=== PATIENT | female | born 1965 | race Caucasian/White ===

== ENCOUNTER 2018-04-24 09:05 | Day surgery (SDC) | payer OTHER ==
[2018-04-23 15:40] VITALS: BMI 35.1
--- NOTE | 2018-04-24 12:32 | OP ---
DATE OF PROCEDURE: 04/24/2018 PREOPERATIVE DIAGNOSES: Gastroesophageal reflux disease and ulcerative colitis. PROCEDURE IN DETAIL: After informed consent was obtained, the patient was placed in the left lateral decubitus position. Anesthesia was administered per the Anesthesia Department. Forward-viewing end oscope was inserted into the esophagus under direct visualization with ease and passed to the second portion of the duodenum with ease. The second portion of the duodenum and duodenal bulb were normal. Pylorus, antrum, body, fundus, and cardia were normal. Retroflexion in the stomach was normal. Es ophagus was normal throughout. ASSESSMENT: Normal esophagogastroduodenoscopy. RECOMMENDATIONS: 1. Continue proton pump inhibitor. 2. Proceed with colonoscopy. PROCEDURE: After informed consent was obtained, the patient was placed in left lateral decubitus pos ition. Anesthesia was administered per the Anesthesia Department. Forward-viewing endoscope was ins erted into the rectum after perianal inspection and rectal exam were normal, it was passed to the cec um with ease. The cecum, ileocecal valve, and appendiceal orifice were normal. The prep was excelle nt. The terminal ileum was entered and was normal in appearance. The ascending, transverse, descend ing, sigmoid and rectum were normal except for the distal 23 cm of the rectum. This showed circumfer ential nodularity and granularity, loss of vascularity and some exudate. Biopsies were taken from th e entire colon and placed into bottles and titled right colon and left colon. ASSESSMENT: 1. Active proctitis involving the distal 23 cm of the rectum. 2. Otherwise normal colonoscopy. RECOMMENDATION: 1. Await histopathology. 2. Continue sulfasalazine.
== END 2018-04-24 10:45 | disposition home or self-care (01) ==
LOC: SDC 09:05
PROVIDERS: ATTEND Internal Medicine Gastroenterology
PROC: 0DJ08ZZ Inspection of Upper Intestinal Tract, Via Natural or Artificial Opening Endoscopic (ICD-10-PCS; principal; 2018-04-24)
PROC: 0DBK8ZX Excision of Ascending Colon, Via Natural or Artificial Opening Endoscopic, Diagnostic (ICD-10-PCS; principal; 2018-04-24)
PROC: 0DBM8ZX Excision of Descending Colon, Via Natural or Artificial Opening Endoscopic, Diagnostic (ICD-10-PCS; principal; 2018-04-24)
DX: K51.20 Ulcerative (chronic) proctitis without complications (principal); K21.9 Gastro-esophageal reflux disease without esophagitis; Z79.899 Other long term (current) drug therapy
CPT/HCPCS: 88305

== ENCOUNTER 2018-05-25 08:23 | Emergency (ER) | payer OTHER ==
[2018-05-25] MEDS ORDERED: Metoclopramide HCl 10 MG/2 ML VIAL ONE (09:16)
[2018-05-25] MEDS ORDERED: Ketorolac Tromethamine 30 MG/ML VIAL ONE (09:16)
[2018-05-25] MEDS ORDERED: diphenhydrAMINE 50 MG/ML VIAL ONE (09:16)
[2018-05-25 09:27] LABS: #Basophils 0.1 thou/uL (0.0-0.2); #Eosinphils 0.4 thou/uL (0.0-0.7); #Lymphocytes 2.4 thou/uL (1.20-3.40); #Monocytes 0.7 thou/uL (0.11-0.59); #Neutrophils 4.9 thou/uL (1.40-6.50); %Basophils 1.1 % (0.0-1.0); %Eosinophils 4.6 % (0.0-10.0); %Lymphocytes 28.5 % (21.0-51.0); %Monocytes 8.1 % (0.0-10.0); %Neutrophils 57.7 % (42.0-75.0); Hemoglobin 13.5 g/dL (12.0-16.0); Mean Corpuscular Hemoglobin 29.6 pg (27.0-31.0); Mean Corpuscular Volume 92.5 fL (78.0-98.0); Mean Platelet Volume 7.4 fL (7.4-10.4); Platelet Count 345 thou/uL (130-400); RBC Distribution Width 12.1 % (11.5-14.5); Red Blood Cell (RBC) Count 4.55 mill/uL (4.20-5.40); White Blood Cell (WBC) Count 8.4 thou/uL (4.8-10.8)
[2018-05-25 09:40] LABS: BHCG - Serum Indeterminate (NEGATIVE); Pregs Control Background? CLEAR/WHITE (CLR/WHITE); Pregs Control Bar Appear? YES (CONTROL BAR)
[2018-05-25 09:50] LABS: Anion Gap 11 mmol/L (10-20); BUN (Urea Nitrogen) 17 mg/dL (9.8-20.1); Calc. Creatinine Clearance 0 mL/min (70-130); Carbon Dioxide 26 mmol/L (22-29); Chloride 104 mmol/L (98-107); Estimated GFR-MDRD 80; Glucose 99 mg/dL (70-105); Potassium 4.2 mmol/L (3.5-5.1); Sodium 137 mmol/L (136-145)
[2018-05-25] MEDS ORDERED: Morphine 4 MG/ML VIAL ONE (10:43)
== END 2018-05-25 11:56 | disposition home or self-care (01) ==
LOC: ERS 08:23
DX: G44.209 Tension-type headache, unspecified, not intractable (principal); M62.838 Other muscle spasm; K21.9 Gastro-esophageal reflux disease without esophagitis; Z79.899 Other long term (current) drug therapy
CPT/HCPCS: 36415; 80048; 84702; 84703; 85025; 96365; 96366; 96375; J1200; J1885; J2270; J2765

== ENCOUNTER 2022-08-01 07:39 | Outpatient (CLI) | payer OTHER | END 2022-08-01 07:40 | disposition home or self-care (01) | LOC: SCSMRI 07:39 | PROVIDERS: ATTEND Orthopaedic Surgery | DX: S46.012A Strain of muscle(s) and tendon(s) of the rotator cuff of left shoulder, initial encounter (principal); M75.122 Complete rotator cuff tear or rupture of left shoulder, not specified as traumatic; R60.0 Localized edema ==

== ENCOUNTER 2022-10-08 10:00 | Outpatient (CLI) | payer OTHER ==
[2022-10-08 11:51] LABS: #Eosinphils 0.2 10x3/uL (0.0-0.5); #Monocytes 0.5 10x3/uL (0.0-1.1); #Neutrophils 4.7 10x3/uL (1.5-8.4); %Basophils 0.5 % (0.0-2.0); %Eosinophils 2.8 % (0.0-6.0); %Lymphocytes 26.4 % (18.0-47.0); %Neutrophils 63.2 % (40.0-75.0); Hemoglobin 13.4 g/dL (12.0-15.5); Mean Corpuscular HGB CONC 33.9 g/dL (32.0-36.0); Mean Corpuscular Hemoglobin 30.2 pg (27.0-33.0); Mean Corpuscular Volume 89.2 fl (81.6-98.3); Mean Platelet Volume 10.4 fl (7.4-10.4); Platelet Count 326 10x3/uL (150-450); RBC Distribution Width 12.8 % (11.5-14.5); Red Blood Cell (RBC) Count 4.43 10x6/uL (3.90-5.03); White Blood Cell (WBC) Count 7.5 10x3/uL (3.5-10.5)
[2022-10-08 12:05] LABS: Anion Gap 11 mmol/L (10-20); BUN (Urea Nitrogen) 14 mg/dL (9.8-20.1); Calc. Creatinine Clearance 0 mL/min (70-130); Calcium 9.4 mg/dL (7.8-10.44); Carbon Dioxide 28 mmol/L (22-29); Chloride 103 mmol/L (98-107); Estimated GFR 100; Glucose 94 mg/dL (70-105); Potassium 4.2 mmol/L (3.5-5.1); Sodium 138 mmol/L (136-145)
== END 2022-10-08 10:01 | disposition home or self-care (01) ==
LOC: LABBT 10:00
PROVIDERS: ATTEND Orthopaedic Surgery
DX: Z01.818 Encounter for other preprocedural examination (principal); S46.012A Strain of muscle(s) and tendon(s) of the rotator cuff of left shoulder, initial encounter
CPT/HCPCS: 80048; 85025; 93005; 93010

== ENCOUNTER 2022-10-11 05:18 | Day surgery (SDC) | payer OTHER ==
[2022-10-09 14:29] VITALS: BMI 34.7
[2022-10-11] MEDS ORDERED: fentaNYL PF 100 MCG/2 ML SYRINGE ONE (06:03)
[2022-10-11] MEDS ORDERED: Lidocaine 2% 6 ML SYR ONE ×2 (06:03→06:04)
[2022-10-11] MEDS ORDERED: Midazolam HCl 2 mg/2 ml Vial ONE (06:03)
[2022-10-11] MEDS ORDERED: PHENYLEPHRINE-NS 100 MCG/ML 10 ML SYRINGE ONE ×2 (06:03→06:45)
[2022-10-11] MEDS ORDERED: Lidocaine 1% (PF) 30 ML VIAL ONE ×2 (06:22→06:38)
[2022-10-11] MEDS ORDERED: EPINEPHrine 1 MG/ML AMP ONE (06:22)
[2022-10-11] MEDS ORDERED: PROPOFOL 200 MG/20 ML VIAL ONE (06:45)
[2022-10-11] MEDS ORDERED: Rocuronium Bromide 10 MG/ML (10ML VIAL) ONE (06:45)
[2022-10-11] MEDS ORDERED: Dexamethasone 20 MG/5 ML VIAL ONE (06:45)
[2022-10-11] MEDS ORDERED: Glycopyrrolate 0.2 MG/ML 5 ML SYRINGE ONE (06:45)
[2022-10-11] MEDS ORDERED: NEOSTIGMINE 3 MG/3 ML SYR 3 MG/3 ML SYRINGE ONE (06:45)
[2022-10-11] MEDS ORDERED: Ondansetron PF 4 MG/2 ML Vial ONE (06:45)
[2022-10-11] MEDS ORDERED: Sodium Chloride 0.9% 100 ML ONE (07:03)
[2022-10-11] MEDS ORDERED: CEFAZOLIN 2 GM VIAL ONE (07:03)
[2022-10-11] MEDS ORDERED: Ropivacaine 0.5% HCl/PF (150 MG/30 ML VIAL) ONE (08:46)
[2022-10-11] MEDS ORDERED: Fentanyl 100 MCG/2 ML VIAL ONE (09:59)
[2022-10-11] MEDS ORDERED: HYDROcodone/Acetaminophen 10/325 mg Tablet PO PRN ×2 (10:00)
[2022-10-11] MEDS ORDERED: Ropivacaine 0.2% 550 ML 550 ML NERVE BLCK SCH (10:00)
[2022-10-11] MEDS ORDERED: Promethazine HCl 25 MG/ML VIAL IM PRN (10:00)
[2022-10-11] MEDS ORDERED: Ondansetron PF 4 MG/2 ML Vial IVP PRN (10:00)
[2022-10-11] MEDS ORDERED: Zolpidem Tartrate 5 MG TAB PO PRN (10:00)
[2022-10-11] MEDS ORDERED: traMADol HCl 50 MG TAB PO PRN ×2 (10:00)
[2022-10-11] MEDS ORDERED: Promethazine HCl 25 MG/ML VIAL ONE (10:48)
[2022-10-11] MEDS ORDERED: Ketorolac Tromethamine 30 MG/ML VIAL IVP SCH (12:00)
== END 2022-10-11 12:30 | disposition home or self-care (01) ==
LOC: SDC 05:18
PROVIDERS: ATTEND Orthopaedic Surgery
PROC: 0RHK04Z Insertion of Internal Fixation Device into Left Shoulder Joint, Open Approach (ICD-10-PCS; principal; 2022-10-11)
PROC: 0LS40ZZ Reposition Left Upper Arm Tendon, Open Approach (ICD-10-PCS; principal; 2022-10-11)
PROC: 0LM24ZZ Reattachment of Left Shoulder Tendon, Percutaneous Endoscopic Approach (ICD-10-PCS; principal; 2022-10-11)
DX: S46.012A Strain of muscle(s) and tendon(s) of the rotator cuff of left shoulder, initial encounter (principal); S46.212A Strain of muscle, fascia and tendon of other parts of biceps, left arm, initial encounter; W18.30XA Fall on same level, unspecified, initial encounter
CPT/HCPCS: A4306; C1713; J0171; J1100; J2001; J2250; J2405; J2550; J2704; J2795; J3010; J3490